=== PATIENT | female | born 1970 | race American Indian/Alaskan Native ===

== ENCOUNTER 2016-07-23 17:07 | Emergency (ER) | payer SELFPAY ==
[2016-07-23 18:32] LABS: Basophils % (Auto) 0.8 % (0.0-1.8); Eosinophils % (Auto) 1.1 % (0.0-4.3); Hematocrit 38.9 % (30.3-42.9); Mean Corpuscular HGB Conc 33 % (30-34); Mean Corpuscular Hemoglobin 32 pg (28-32); Mean Corpuscular Volume 96 fl (79-97); Platelet Count 242 K/mm3 (140-440); Red Blood Count 4.06 M/mm3 (3.65-5.03); Red Cell Distribution Width 13.8 % (13.2-15.2); White Blood Count 3.9 K/mm3 (4.5-11.0)
[2016-07-23 18:46] LABS: Anion Gap 16 mmol/L; BUN/Creatinine Ratio 17.14; Blood Urea Nitrogen 12 mg/dL (7-17); Calcium 8.9 mg/dL (8.4-10.2); Carbon Dioxide 25 mmol/L (22-30); Chloride 101.6 mmol/L (98-107); Glucose 101 mg/dL (65-100); Potassium 3.8 mmol/L (3.6-5.0); Sodium 139 mmol/L (137-145)
[2016-07-23] MEDS ORDERED: TORADOL IV ONE (20:24)
[2016-07-23] MEDS ORDERED: NACL 0.9% 1000 ML 1,000 ML IV ONE (20:24)
[2016-07-23] MEDS ORDERED: REGLAN IV ONE (20:24)
[2016-07-23] MEDS ORDERED: BENADRYL IV ONE (20:24)
--- NOTE | 2016-07-23 20:59 | Emergency Department Report ---
ED Lower Extremity HPI - General Chief Complaint: Dizziness Stated Complaint: VOMITING/BP/BLURRED VISION/AL Time Seen by Provider: 07/23/16 20:13 Source: patient Mode of arrival: Ambulatory Limitations: No Limitations - History of Present Illness Initial Comments: 45-year-old female with no significant past medical history presents to the hospital complains of right knee pain and headache, nausea, and vomiting. Patient complains of frontal bitemporal headache for the last 3 days. Headache is pulsating and intermittent. Patient has been taking Motrin for her knee pain and had some mild improvement in her headache. 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 Symptoms continued today. Patient also has a complaint of right knee pain ongoing for about a month and a half. Taking Motrin with mild relief. Patient denies any recent trauma, but stands on her feet for long. The time at work and has noticed worsening in her varicose veins. Pain is constant worse with movement and palpation. Patient does not have a primary care doctor denies a past medical history of hypertension despite presenting hypertensive in the ED. Patient also noted that her blood pressure was high ( sbp 170's) during her episode of headache, nausea, and vomiting at work yesterday. - Related Data Previous Rx's Medication Instructions Recorded Last Taken Type HYDROcodone/APAP 5-325 [[place] 1 each PO Q6HR PRN #20 tablet 07/23/16 Unknown Rx 5/325] Ibuprofen [Motrin] 800 mg PO Q8HR PRN #30 tablet 07/23/16 Unknown Rx Ondansetron [Zofran Odt] 4 mg PO Q8HR PRN #20 tab.rapdis 07/23/16 Unknown Rx amLODIPine [Norvasc] 5 mg PO DAILY #30 tab 07/23/16 Unknown Rx Allergies Allergy/AdvReac Type Severity Reaction Status Date / Time No Known Allergies Allergy Unverified 07/23/16 17:45 ED Review of Systems ROS: Stated complaint: VOMITING/BP/BLURRED VISION/AL Other details as noted in HPI Comment: All other systems reviewed and negative Other: Constitutional: No fevers chills Eyes: as per hpi ENT: No ear pain or throat pain Neck: Denies pain Respiratory: Denies cough wheezing shortness of breath Cardiovascular: Denies chest pain, palpitations, syncope GI: Denies abdominal pain diarrhea : Denies dysuria, urinary frequency, or urgency Musculoskeletal: Denies back pain Skin: Denies rash, lesions, erythema Neurologic: as per hpi Psychiatric: Denies suicidal ideation, hallucinations ED Past Medical Hx - Past Medical History Previous Medical History?: No - Surgical History Hx Cholecystectomy: Yes - Social History Smoking Status: Never Smoker Substance Use Type: None - Medications Home Medications: Home Medications Medication Instructions Recorded Confirmed Last Taken Type HYDROcodone/APAP 5-325 [Dalhart 1 each PO Q6HR PRN #20 tablet 07/23/16 Unknown Rx 5/325] Ibuprofen [Motrin] 800 mg PO Q8HR PRN #30 tablet 07/23/16 Unknown Rx Ondansetron [Zofran Odt] 4 mg PO Q8HR PRN #20 tab.rapdis 07/23/16 Unknown Rx amLODIPine [Norvasc] 5 mg PO DAILY #30 tab 07/23/16 Unknown Rx ED Physical Exam - General Limitations: No Limitations - Other Other exam information: General: No limitations, patient is alert in no acute distress Head exam: Atraumatic, normocephalic Eyes exam: Normal appearance ENT: Moist mucous membrane, normal oropharynx Neck exam: Normal inspection, full range of motion Respiratory exam: Clear to auscultation bilateral, no wheezes, rales, crackles Cardiovascular: Normal rate and rhythm, normal heart sounds Abdomen: Soft, nondistended, and nontender, with normal bowel sounds, no rebound, or guarding Extremity: Full range of motion, mild generalized swelling to the knee on the right compared to the left. Tenderness to the medial and lateral joint spaces. Bilateral leg varicose veins, 2+ dp pulses Back: Normal Inspection, full range of motion, no tenderness Neurologic: Alert, oriented x3, cranial nerves intact, no motor or sensory deficit Psychiatric: normal affect, normal mood Skin: Warm, dry, intact ED Course Vital Signs 07/23/16 07/23/16 07/23/16 17:38 20:24 20:25 Temperature 98.8 F Pulse Rate 108 H Respiratory 18 Rate Blood Pressure 152/103 136/95 136/95 O2 Sat by Pulse 99 100 Oximetry 07/23/16 07/23/16 07/23/16 20:30 20:36 20:40 Temperature Pulse Rate 67 64 68 Respiratory 15 13 11 L Rate Blood Pressure 139/89 139/89 139/89 O2 Sat by Pulse 100 100 99 Oximetry 07/23/16 07/23/16 07/23/16 20:46 20:50 20:56 Temperature Pulse Rate 63 70 75 Respiratory 14 16 25 H Rate Blood Pressure 139/89 139/89 136/95 O2 Sat by Pulse 100 95 100 Oximetry 07/23/16 07/23/16 07/23/16 21:00 21:06 21:10 Temperature Pulse Rate 68 63 60 Respiratory 20 23 19 Rate Blood Pressure 136/95 136/95 136/95 O2 Sat by Pulse 100 99 100 Oximetry 07/23/16 07/23/16 07/23/16 21:16 21:20 21:26 Temperature Pulse Rate 58 L 57 L 58 L Respiratory 24 25 H 24 Rate Blood Pressure 136/95 136/95 136/95 O2 Sat by Pulse 100 100 99 Oximetry 07/23/16 07/23/16 07/23/16 21:30 21:56 22:00 Temperature Pulse Rate 57 L 58 L Respiratory 21 11 L Rate Blood Pressure 136/95 136/95 151/101 O2 Sat by Pulse 99 100 100 Oximetry 07/23/16 07/23/16 07/23/16 22:06 22:10 22:16 Temperature Pulse Rate 60 64 57 L Respiratory 14 13 14 Rate Blood Pressure 151/101 151/101 151/101 O2 Sat by Pulse 100 100 100 Oximetry 07/23/16 07/23/16 07/23/16 22:20 22:26 22:30 Temperature Pulse Rate 63 63 55 L Respiratory 10 L 15 19 Rate Blood Pressure 151/101 151/101 151/101 O2 Sat by Pulse 100 100 100 Oximetry 07/23/16 07/23/16 07/23/16 22:36 22:40 22:46 Temperature Pulse Rate 52 L 57 L 70 Respiratory 16 20 12 Rate Blood Pressure 151/101 151/101 151/101 O2 Sat by Pulse 100 99 100 Oximetry 07/23/16 22:50 Temperature Pulse Rate 69 Respiratory 13 Rate Blood Pressure 151/101 O2 Sat by Pulse 100 Oximetry - Reevaluation(s) Reevaluation #1: 07/23/16 21:11 ns, reglan, benadryl, toradol ordered Reevaluation #2: 07/23/16 22:13 head improved but still persists. Additional pain medicine ordered Dilaudid 0.5 mg and Zofran 4mg ED Lower Extremity MDM - Lab Data Result diagrams: 07/23/16 18:06 07/23/16 18:06 Lab Results 07/23/16 07/23/16 07/23/16 Range/Units 18:06 18:06 20:45 WBC 3.9 L (4.5-11.0) K/mm3 RBC 4.06 (3.65-5.03) M/mm3 Hgb 13.0 (10.1-14.3) gm/dl Hct 38.9 (30.3-42.9) % MCV 96 (79-97) fl MCH 32 (28-32) pg MCHC 33 (30-34) % RDW 13.8 (13.2-15.2) % Plt Count 242 (140-440) K/mm3 Lymph % (Auto) 38.1 H (13.4-35.0) % [place] % (Auto) 8.6 H (0.0-7.3) % Eos % (Auto) 1.1 (0.0-4.3) % Baso % (Auto) 0.8 (0.0-1.8) % Lymph # 1.5 (1.2-5.4) K/mm3 [place] # 0.3 (0.0-0.8) K/mm3 Eos # 0.0 (0.0-0.4) K/mm3 Baso # 0.0 (0.0-0.1) K/mm3 Seg Neutrophils % 51.4 (40.0-70.0) % Seg Neutrophils # 2.0 (1.8-7.7) K/mm3 Sodium 139 (137-145) mmol/L Potassium 3.8 (3.6-5.0) mmol/L Chloride 101.6 (98-107) mmol/L Carbon Dioxide 25 (22-30) mmol/L Anion Gap 16 mmol/L BUN 12 (7-17) mg/dL Creatinine 0.7 (0.7-1.2) mg/dL Estimated GFR > 60 ml/min BUN/Creatinine Ratio 17.14 % Glucose 101 H (65-100) mg/dL Calcium 8.9 (8.4-10.2) mg/dL Troponin T < 0.010 (0.00-0.029) ng/mL Urine Color Yellow (Yellow) Urine Turbidity Clear (Clear) Urine pH 6.0 (5.0-7.0) Ur Specific [place] 1.017 (1.003-1.030) Urine Protein <15 mg/dl (Negative) mg/dL Urine Glucose (UA) Neg (Negative) mg/dL Urine Ketones Neg (Negative) mg/dL Urine Blood Neg (Negative) Urine Nitrite Neg (Negative) Ur Reducing Substances Not Reportable Urine Bilirubin Neg (Negative) Urine Ictotest Not Reportable Urine Urobilinogen < 2.0 (<2.0) mg/dL Ur Leukocyte Esterase Tr (Negative) Urine WBC (Auto) 1.0 (0.0-6.0) /HPF Urine RBC (Auto) 6.0 (0.0-6.0) /HPF U Epithel Cells (Auto) 8.0 (0-13.0) /HPF Urine Mucus Few /HPF Urine HCG, Qual Negative (Negative) - Radiology Data Radiology results: report reviewed ct head: naf R knee xray: naf (read my me) - Medical Decision Making Pain improved ED treatment. CT does not show any acute abnormality. Patient has slightly elevated blood pressure and it fluctuates during ED stay. Norvasc 5 mg will be prescribed to take at home for blood pressure. Pain medication will be provided for right knee arthralgia and headache. Patient will be provided a work excuse to rest and be provided multiple physicians for outpatient follow-up - Differential Diagnosis arthritis, ich, intracranial mass, HTN, migraine, tension, Critical Care Time: No Critical care attestation.: If time is entered above; I have spent that time in minutes in the direct care of this critically ill patient, excluding procedure time. ED Disposition Clinical Impression: Elevated blood pressure, Headache, Vomiting, Right knee pain, Varicose vein of leg Disposition: DISCHARGED TO HOME OR SELFCARE Is pt being admited?: No Does the pt Need Aspirin: No Condition: Stable Instructions: How to Take a Blood Pressure (ED), Acute Headache (ED), Knee Pain (ED), Varicose Veins (ED) Additional Instructions: Take the medications as prescribed. Follow-up with the doctors provided. Return if symptoms worsen Prescriptions: amLODIPine [Norvasc] 5 mg PO DAILY #30 tab HYDROcodone/APAP 5-325 [Dalhart 5/325] 1 each PO Q6HR PRN #20 tablet PRN Reason: Pain Ibuprofen [Motrin] 800 mg PO Q8HR PRN #30 tablet PRN Reason: Pain Ondansetron [Zofran Odt] 4 mg PO Q8HR PRN #20 tab.rapdis PRN Reason: Nausea And Vomiting Referrals: SARAI HAND MD [Staff Physician] - 3-5 Days (orthopedic doctor ) MARIYA NOBLE MD [Staff Physician] - 3-5 Days (vascular doctor) LINDSAY BLANCA MD [Staff Physician] - 2-3 Days (Primary care doctor) Forms: Work/School Release Form(ED) Time of Disposition: 23:34
[2016-07-23 21:15] LABS: Bilirubin,Urine NEG (Negative); Blood,Urine NEG (Negative); Ketones,Urine NEG (Negative); Leukocyte Esterase,Urine TR (Negative); Mucus,Urine FEW /HPF; Nitrite,Urine NEG (Negative); Protein,Urine <15 mg/dL mg/dL (Negative); Urobilinogen,Urine < 2.0 mg/dL (<2.0)
--- NOTE | 2016-07-23 21:58 | Cat Scan Report ---
FINAL REPORT EXAM: CT HEAD/BRAIN WO CON HISTORY: frontal simmons, htn TECHNIQUE: Noncontrast CT axial images of the brain. PRIORS: None. FINDINGS: No parenchymal mass, mass effect, hemorrhage, midline shift or hydrocephalus. No evidence of acute cortical infarct. No abnormal, extra-axial fluid or air collection. Osseous calvarium grossly intact. IMPRESSION: 1. No acute intracranial findings.
[2016-07-23] MEDS ORDERED: ZOFRAN IV ONE (22:12)
[2016-07-23] MEDS ORDERED: DILAUDID IV ONE (22:12)
[2016-07-23 23:03] VITALS: BP 151/101
--- NOTE | 2016-07-24 08:50 | XRay Report ---
RIGHT KNEE, 3 views: History: Right knee pain. The bony architecture is intact without evidence of fracture or dislocation. No significant soft tissue abnormality is seen. IMPRESSION: Normal right knee.
== END 2016-07-23 23:55 | disposition home or self-care (01) ==
LOC: ED 17:07
DX: R03.0 Elevated blood-pressure reading, without diagnosis of hypertension (principal); I83.90 Asymptomatic varicose veins of unspecified lower extremity; R51 Headache; M25.561 Pain in right knee; R11.10 Vomiting, unspecified; Z90.49 Acquired absence of other specified parts of digestive tract
CPT/HCPCS: 36415; 70450; 73562; 80048; 81001; 81025; 84484; 85025; 93005; 93010; 96361; 96374; 96375; 99285; J1170; J1200; J1885; J2405; J2765; J7030